=== PATIENT | male | born 1945 | race Caucasian/White ===

== ENCOUNTER → 2021-08-18 | Outpatient (CLI) | payer MEDICARE | LOC: COL.RAD 10:05 | DX: F03.90 Unspecified dementia, unspecified severity, without behavioral disturbance, psychotic disturbance, mood disturbance, and anxiety (principal); R29.90 Unspecified symptoms and signs involving the nervous system | CPT/HCPCS: A9575 ==

== ENCOUNTER 2021-09-20 11:29 | Emergency (ER) | payer MEDICARE ==
[~2021-09-20] VITALS: Ht 177.8 cm; Wt 75.0 kg
[2021-09-20 12:54] VITALS: TEMP 97.7
[2021-09-20 14:35] LABS: BASO % 0.4 % (0.0-2.0); EOS # 0.1 K/mm3 (0.0-0.7); EOS % 1.4 % (0.0-4.0); GRAN % 68.9 % (42.2-75.2); HEMATOCRIT 39.8 % (42.0-52.0); HEMOGLOBIN 13.3 g/dl (13.5-18.0); LYMPH # 1.6 K/mm3 (1.2-3.4); LYMPH % 21.6 % (20.0-51.0); MEAN CELL VOLUME 89 fl (80.0-100.0); MEAN CORPUSCULAR HEMOGLOBIN 30 pg (27-31); MEAN CORPUSCULAR HGB CONC 33 g/dl (33.0-37.0); MEAN PLATELET VOLUME 10.8 fl (7.4-10.4); MONO # 0.5 K/mm3 (0.1-0.6); MONO % 7.3 % (1.7-9.3); PLATELET COUNT 198 K/mm3 (130-400); RED BLOOD COUNT 4.46 M/mm3 (4.20-5.60); REDCELL DISTRIBUTION WIDTH-CV 13.4 % (11.5-14.5)
[2021-09-20 14:46] LABS: ALBUMIN 4.4 gm/dL (3.4-4.8); BILIRUBIN,TOTAL 1.1 mg/dL (0.2-1.2); C-REACTIVE PROTEIN 0.07 mg/dL (0.00-0.50); CALCIUM 9.4 mg/dL (8.4-10.2); CREATININE, serum 1.07 mg/dL (0.72-1.25); POTASSIUM 4.5 mmol/L (3.5-4.5)
[2021-09-20 14:52] LABS: TROPONIN-I 0.012 ng/mL (0.00-0.033)
[2021-09-20] MEDS ORDERED: PRINIVIL10 MG PO (16:03)
[2021-09-20] MEDS ORDERED: HCTZ 25MG TAB25 MG PO (16:03)
[2021-09-20 16:23] VITALS: BP 180/85; PULSE 58
== END 2021-09-20 16:33 | disposition home or self-care (01) ==
LOC: COL.ER 11:29
PROVIDERS: Emergency Medicine
DX: R00.1 Bradycardia, unspecified (principal); I10 Essential (primary) hypertension; F03.90 Unspecified dementia, unspecified severity, without behavioral disturbance, psychotic disturbance, mood disturbance, and anxiety; Z20.822 Contact with and (suspected) exposure to COVID-19
CPT/HCPCS: J7030